=== PATIENT | female | born 1965 | race Caucasian/White ===

== ENCOUNTER 2021-12-04 08:35 | Outpatient (REF) | payer MEDICAID, SELFPAY ==
--- NOTE | ~2021-12-04 | XR_ITS ---
EXAMINATION: XR SHOULDER, LEFT CLINICAL INFORMATION: Pain COMPARISON: None TECHNIQUE: Four views of the left shoulder. XR/XR shoulder LT min 2V FINDINGS/IMPRESSION: No acute fracture or dislocation. 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 Glenohumeral joint space is maintained. Soft tissues are unremarkable.
== END 2021-12-04 08:36 | disposition home or self-care (01) ==
LOC: HO.HOSX 08:35
PROVIDERS: Visit Provider Physician Assistant
DX: M75.102 Unspecified rotator cuff tear or rupture of left shoulder, not specified as traumatic (principal)
CPT/HCPCS: 73030; 99212; J1040